=== PATIENT | female | born 1990 | race Caucasian/White ===

== ENCOUNTER 2017-10-26 07:12 | Emergency (ER) | END 2017-10-26 10:00 | disposition home or self-care (01) ==

== ENCOUNTER 2018-09-23 07:06 | Emergency (ER) | payer OTHER ==
[~2018-09-23] VITALS: Ht 154.9 cm; Wt 64.0 kg
[~2018-09-23 07:06] MED LIST: CEPH-443 PO; NAPR-985 PO
[2018-09-23 07:09] VITALS: BP 126/72; PULSE 83; RESP 18; Ht 154.9 cm; Wt 64.0 kg
[2018-09-23] MEDS ORDERED: ONDA4TAB14 PO (08:35)
[2018-09-23] MEDS ORDERED: IBUP-1542 PO (08:35)
[2018-09-23] MEDS ORDERED: ACET325T33 PO (08:35)
[2018-09-23] MEDS ORDERED: CIPR500T4 PO (08:35)
[2018-09-23] MEDS ORDERED: DOCU-144 PO (08:35)
--- NOTE | 2018-09-23 10:51 | ERD ---
ER Documentation Chief Complaint Chief Complaint pt is bib self with c/o vomiting and diarrhea x 3 days HPI 28-year-old female presenting with dizziness and lower pelvic pain. Patient states that she has had generalized abdominal pain with some vomiting and feels mildly dizzy. She had diarrhea yesterday. She denies any fevers. She is never had this before. Has not taken medications for symptoms. Denies chest pain or shortness of breath. Last bowel movement was yesterday. Denies medical problems. NKDA. Surgical history denies. Social history denies ROS All systems reviewed and are negative except as per history of present illness. Medications Home Meds Active Scripts Docusate Sodium* (Colace*) 100 Mg Capsule, 100 MG PO TID, #30 CAP Prov:FERNANDO CARRILLO PA-C 09/23/18 Ondansetron (Ondansetron Odt) 4 Mg Tab.rapdis, 4 MG PO Q6H PRN for NAUSEA AND/OR VOMITING, #10 TAB Prov:FERNANDO CARRILLO PA-C 09/23/18 Ibuprofen* (Motrin*) 600 Mg Tab, 600 MG PO Q6, #30 TAB Prov:FERNANDO CARRILLO PA-C 09/23/18 Acetaminophen* (Tylenol*) 325 Mg Tablet, 2 TAB PO Q6 PRN for PAIN AND OR ELEVATED TEMP, #20 TAB Prov:FERNANDO CARRILLO PA-C 09/23/18 Ciprofloxacin Hcl* (Ciprofloxacin Hcl*) 500 Mg Tablet, 500 MG PO BID for 7 Days, TAB Prov:FERNANDO CARRILLO PA-C 09/23/18 Cephalexin* (Keflex*) 500 Mg Capsule, 500 MG PO QID for 7 Days, CAP Prov:CRISTIAN REDMOND PA-C 10/26/17 Naproxen* (Naprosyn*) 500 Mg Tablet, 500 MG PO BID PRN for PAIN AND/OR INFLAMMATION, #30 TAB Prov:CRISTIAN REDMOND PA-C 10/26/17 Allergies Allergies: Coded Allergies: No Known Allergy (Unverified , 10/26/17) PMhx/Soc Medical and Surgical Hx: pt denies Medical Hx, pt denies Surgical Hx Hx Alcohol Use: No Hx Substance Use: No Hx Tobacco Use: No FmHx Family History: No diabetes, No coronary disease, No other Physical Exam Vitals Vital Signs Date Temp Pulse Resp B/P (MAP) Pulse Ox O2 O2 Flow FiO2 Time Delivery Rate 09/23/18 96.7 83 18 126/72 98 07:09 (90) Physical Exam GENERAL: The patient is well-appearing, well-nourished, in no acute distress HEENT: Atraumatic. Conjunctivae are pink. Pupils equal, round, and reactive to light. There is no scleral icterus. Tympanic membranes clear bilaterally. Or opharynx clear. NECK: C-spine is soft and supple. There is no meningismus. There is no cervical lymphadenopathy. CHEST: Clear to auscultation bilaterally. There are no rales, wheezes or rhonchi. HEART: Regular rate and rhythm. No murmurs, clicks, rubs or gallops. ABDOMEN:Soft, nontender and nondistended. Good bowel sounds. No rebound or guarding. No gross peritonitis. No gross organomegaly or masses. Result Diagram: 09/23/18 0745 09/23/18 0745 Results 24 hrs Laboratory Tests Test 09/23/18 07:44 09/23/18 07:45 POC Beta HCG, Qualitative NEGATIVE White Blood Count 5.2 10^3/ul Red Blood Count 4.25 10^6/ul Hemoglobin 12.1 g/dl Hematocrit 35.3 % Mean Corpuscular Volume 83.1 fl Mean Corpuscular Hemoglobin 28.5 pg Mean Corpuscular Hemoglobin Concent 34.3 g/dl Red Cell Distribution Width 12.9 % Platelet Count 188 10^3/UL Mean Platelet Volume 9.6 fl Immature Granulocytes % 0.200 % Neutrophils % 47.7 % Lymphocytes % 35.2 % Monocytes % 14.0 % Eosinophils % 2.5 % Basophils % 0.4 % Nucleated Red Blood Cells % 0.0 /100WBC Immature Granulocytes # 0.010 10^3/ul Neutrophils # 2.5 10^3/ul Lymphocytes # 1.8 10^3/ul Monocytes # 0.7 10^3/ul Eosinophils # 0.1 10^3/ul Basophils # 0.0 10^3/ul Nucleated Red Blood Cells # 0.0 10^3/ul Urine Color YELLOW Urine Clarity CLOUDY Urine pH 5.0 Urine Specific [place] 1.023 Urine Ketones TRACE mg/dL Urine Nitrite NEGATIVE mg/dL Urine Bilirubin NEGATIVE mg/dL Urine Urobilinogen 1+ mg/dL Urine Leukocyte Esterase 2+ Vamsi/ul Urine Microscopic RBC 141 /HPF Urine Microscopic WBC 23 /HPF Urine Squamous Epithelial Cells FEW /HPF Urine Bacteria FEW /HPF Urine Mucus FEW /HPF Urine Hemoglobin 3+ mg/dL Urine Glucose NEGATIVE mg/dL Urine Total Protein NEGATIVE mg/dl Sodium Level 142 mmol/L Potassium Level 4.2 mmol/L Chloride Level 107 mmol/L Carbon Dioxide Level 26 mmol/L Anion Gap 9 Blood Urea Nitrogen 13 mg/dl Creatinine 0.50 mg/dl Est Glomerular Filtrat Rate mL/min > 60 mL/min Glucose Level 156 mg/dl Calcium Level 9.5 mg/dl Total Bilirubin 0.5 mg/dl Direct Bilirubin 0.00 mg/dl Indirect Bilirubin 0.5 mg/dl Aspartate Amino Transf (AST/SGOT) 200 IU/L Alanine Aminotransferase (ALT/SGPT) 251 IU/L Alkaline Phosphatase 84 IU/L Total Protein 7.6 g/dl Albumin 4.4 g/dl Globulin 3.20 g/dl Albumin/Globulin Ratio 1.37 Lipase 96 U/L Procedures/MDM DIAGNOSTIC IMAGING REPORT Patient: ANUPAMA VELIZ : 1990 Age: 28 Sex: F [id number] DOS: 09/23/18 0726 Ordering MD: WANDER CARRILLO PA-C Location: [facility] Room/Bed: PROCEDURE: CT Abdomen and pelvis without contrast. CLINICAL INDICATION: Epigastric pain. Constipation for 2 days. TECHNIQUE: CT scan of the abdomen and pelvis without contrast was performed on a multidetector high-resolution CT scan. . Coronal and sagittal reformatted images were obtained from the axial source images. Standard CT scan of the abdomen pelvis without contrast protocols were performed. The total exam CTDI equals 12.69 mGy and the total exam DLP equals 7 and 21.7 mGy-cm. One or more of the following dose reduction techniques were used: - Automated exposure control. - Adjustment of the mA and/or kV according to patient size. Use of iterative reconstruction technique. Dicom images are available COMPARISON: Pelvic ultrasound 10/26/2017 FINDINGS: Stomach, small bowel, large bowel and appendix are unremarkable. No evidence of intra-abdominal free air, free fluid, abscesses or lymphadenopathy. Nonspecific left mid mesenteric lymph nodes. Kidneys are normal in size without calcified calculi or hydronephrosis bilaterally. The superior pole of the right kidney is a 2.2 cm cyst. No other intra masses bilaterally. No ureteral calcified calculi or dilatation. Contracted otherwise unremarkable urinary bladder. Anteverted anteflexed otherwise unremarkable uterus. No adnexal masses demonstrated. Hepatic fatty infiltration without focal hepatic lesions. Spleen pancreas adrenal glands and gallbladder unremarkable. No evidence of biliary ductal dilation. Lung bases unremarkable. Aorta unremarkable. Abdominal pelvic wall unremarkable. Minimal degenerate changes of the lower thoracic and lumbar spine without acute osseous findings are osteoblastic/osteolytic lesions. IMPRESSION: 1. No gastrointestinal disease. 2. No calcified urinary calculi or obstructive uropathy. Superior right renal 2.2 cm cyst. 3. Hepatic fatty infiltration. MDM: 28-year-old female presenting with abdominal pain with vomiting and diarrhea. Patient's blood work is stable patient's exam is non-concerning. CT scan is within normal limits. Patient is discharged with supportive medications and told to follow-up with primary care within 1-2 days for close evaluation. Patient is told symptoms change or worsen to return immediately to the ER. All questions answered discharge Departure Diagnosis: Primary Impression: UTI (urinary tract infection) Additional Impression: Nausea and vomiting Condition: Stable Patient Instructions: Understanding Urinary Tract Infections (UTIs) Referrals: [facility] YOU HAVE RECEIVED A MEDICAL SCREENING EXAM AND THE RESULTS INDICATE THAT YOU DO NOT HAVE A CONDITION THAT REQUIRES URGENT TREATMENT IN THE EMERGENCY DEPARTMENT. FURTHER EVALUATION AND TREATMENT OF YOUR CONDITION CAN WAIT UNTIL YOU ARE SEEN IN YOUR DOCTORS OFFICE WITHIN THE NEXT 1-2 DAYS. IT IS YOUR RESPONSIBILITY TO MAKE AN APPOINTMENT FOR FOLOW-UP CARE. IF YOU HAVE A PRIMARY DOCTOR --you should call your primary doctor and schedule an appointment IF YOU DO NOT HAVE A PRIMARY DOCTOR YOU CAN CALL OUR PHYSICIAN REFERRAL HOTLINE AT IF YOU CAN NOT AFFORD TO SEE A PHYSICIAN YOU CAN CHOSE FROM THE FOLLOWING [facility] [address] [facility] [address] [facility]. [facility] [address] [facility] [address] [facility] [address] [facility]. [facility] [address] Additional Instructions: FOLLOW UP WITH YOUR PRIMARY CARE PHYSICIAN TOMORROW.Return to this facility if you are not improving as expected. FERNANDO CARRILLO PA-C Sep 23, 2018 10:51
== END 2018-09-23 08:47 | disposition home or self-care (01) ==
LOC: FTE 07:06
DX: N39.0 Urinary tract infection, site not specified (principal)
CPT/HCPCS: 36415; 74176; 80053; 81001; 81025; 83690; 85025